=== PATIENT | female | born 1955 | race Caucasian/White ===

== ENCOUNTER 2020-05-18 15:52 | Observation (INO) ==
[2020-05-18] MEDS ORDERED: cefTRIAXone 1,000 MG in Water for inj. (sterile) 10 ML IVP ONE (17:21)
[2020-05-18] MEDS ORDERED: Acetaminophen 325 MG TABLET PO PRN (17:23)
[2020-05-18] MEDS ORDERED: *HR* Promethazine 25 MG/ML VIAL IVP PRN (17:23)
[2020-05-18] MEDS ORDERED: *HR* HYDROmorphone 2 MG TABLET PO PRN (18:04)
[2020-05-18] MEDS ORDERED: *HR* HYDROmorphone (PF) 1 MG/ML SYRINGE IVP PRN (18:06)
[2020-05-18 20:41] LABS: Adenovirus Not Detected (Not Detect); Bordetella Pertussis Not Detected (Not Detect); Chlamydophila pneumoniae Not Detected (Not Detect); Coronavirus 229E Not Detected (Not Detect); Coronavirus HKU1 Not Detected (Not Detect); Coronavirus NL63 Not Detected (Not Detect); Coronavirus OC43 Not Detected (Not Detect); Human Metapneumovirus Not Detected (Not Detect); Human Rhinovirus/Enterovirus Not Detected (Not Detect); Influenza A Subtype 2009 H1 Not Detected (Not Detect); Influenza B Not Detected (Not Detect); Mycoplasma pneumoniae Not Detected (Not Detect); Parainfluenza Virus 1 Not Detected (Not Detect); Parainfluenza Virus 2 Not Detected (Not Detect); Parainfluenza Virus 3 Not Detected (Not Detect); Parainfluenza Virus 4 Not Detected (Not Detect); Respiratory Syncytial Virus Not Detected (Not Detect); SARS-CoV-2 Not Detected (Not Detect)
[2020-05-18] MEDS: Ringers Solution, Lactated 1,000 ML IVC SCH (21:38)
[2020-05-19] MEDS: Ringers Solution, Lactated 1,000 ML IVC SCH (05:40)
[2020-05-19] MEDS ORDERED: *HR* Enoxaparin 40 MG/0.4 ML SYRINGE SQ SCH (06:00)
[2020-05-19 06:09] LABS: Hematocrit 42.1 % (35.3-44.9); Hemoglobin 13.5 g/dL (11.5-15.4); Mean Corpuscular HGB Conc 32.1 g/dL (31.6-35.5); Mean Corpuscular Hemoglobin 28.9 pg (28.0-33.3); Mean Corpuscular Volume 90.1 fL (83.0-100.0); Mean Platelet Volume 10.3 fL (9.4-12.4); Platelet Count 248 K/mcL (140-400); Red Blood Count 4.67 M/mcL (3.82-4.97); Red Cell Distribution Width 13.2 % (11.5-14.5); White Blood Count 8.8 K/mcL (4.3-11.1)
[2020-05-19 06:38] LABS: BUN/Creatinine Ratio 24 (6-26); Blood Urea Nitrogen 15 mg/dL (8-23); Calcium 9.5 mg/dL (8.6-10.3); Carbon Dioxide 24 mEq/L (23-29); Chloride 106 mEq/L (98-107); Glucose 133 mg/dL (70-105); Osmolality,Calculated 291 (280-300); Potassium 3.8 mEq/L (3.5-5.1); Sodium 139 mEq/L (136-145); eGFR For African Americans > 60 (> 60); eGFR For Non-African Americans > 60 (> 60)
[2020-05-19] MEDS ORDERED: cefTRIAXone 1,000 MG in Water for inj. (sterile) 10 ML IVP SCH (09:00)
[2020-05-19] MEDS ORDERED: *HR* Midazolam HCl 2 MG/2 ML VIAL ONE (09:18)
[2020-05-19] MEDS ORDERED: *HR* Propofol 200 MG/20 ML VIAL IVP ONE (09:18)
[2020-05-19] MEDS ORDERED: *HR* FentaNYL (PF) 100 MCG/2 ML VIAL ONE (09:18)
[2020-05-19] MEDS ORDERED: Ondansetron 4 MG/2 ML VIAL ONE (09:19)
[2020-05-19] MEDS ORDERED: Dexamethasone 4 MG/ML VIAL ONE (09:19)
[2020-05-19] MEDS ORDERED: Lidocaine -MPF 2% 2 ML VIAL ONE (09:19)
[2020-05-19] MEDS ORDERED: Isovue-300 50ML VIAL ONE (09:23)
[2020-05-19] MEDS ORDERED: *HR* OxyCODONE Immed Rel 5 MG TABLET PO PRN (09:24)
[2020-05-19] MEDS ORDERED: Ondansetron 4 MG/2 ML VIAL IVP PRN (09:24)
[2020-05-19] MEDS ORDERED: Scopolamine Patch 1.5 MG PATCH.TD72 TD ONE (09:56)
[2020-05-19] MEDS ORDERED: Famotidine 20 MG/2 ML VIAL IVP ONE (09:56)
[2020-05-19] MEDS ORDERED: Acetaminophen IV 1,000 MG/100 ML INFUS..BTL IVPB ONE (09:57)
[2020-05-19] MEDS ORDERED: Acetaminophen IV 1,000 MG/100 ML INFUS..BTL ONE (10:01)
[2020-05-19] MEDS ORDERED: Famotidine 20 MG/2 ML VIAL ONE (10:01)
[2020-05-19] MEDS ORDERED: Scopolamine Patch 1.5 MG PATCH.TD72 ONE (10:01)
[2020-05-19] MEDS ORDERED: *HR* HYDROmorphone 2 MG TABLET PO PRN (11:43)
[2020-05-19] MEDS ORDERED: Ringers Solution, Lactated 1,000 ML IVC SCH (11:43)
[2020-05-19] MEDS ORDERED: Acetaminophen 325 MG TABLET PO PRN (11:43)
[2020-05-19] MEDS ORDERED: cefTRIAXone 1,000 MG in Water for inj. (sterile) 10 ML IVP ONE (11:43)
[2020-05-19] MEDS: *HR* Promethazine 25 MG/ML VIAL IVP PRN ×2 (13:26→20:31)
[2020-05-19] MEDS: *HR* HYDROmorphone (PF) 1 MG/ML SYRINGE IVP PRN ×2 (13:26→20:32)
[2020-05-19] MEDS ORDERED: Hyoscyamine SL 0.125 MG TAB.SUBL SL PRN (15:39)
[2020-05-20] MEDS ORDERED: *HR* Enoxaparin 40 MG/0.4 ML SYRINGE SQ SCH (06:00)
[2020-05-20] MEDS ORDERED: cefTRIAXone 1,000 MG in Water for inj. (sterile) 10 ML IVP SCH (09:00)
[2020-05-20 10:47] VITALS: BP 159/77
[2020-05-20] MEDS ORDERED: Isosorbide MONOnitrate (24 HR) 30 MG TAB.ER.24H PO STA (11:03)
[2020-05-20] MEDS ORDERED: DilTIAZem CD (24hr) 240 MG CAP.ER.24H PO SCH (11:30)
== END 2020-05-20 13:37 | disposition home or self-care (01) ==
LOC: 3ANU 15:52 → EMEROOARM 15:52 → SUATTDRO 17:36 → 3ANU 17:47
PROVIDERS: ADMIT Internal Medicine; ATTEND Student in an Organized Health Care Education/Training Program